=== PATIENT | male | born 1985 | race African-American/Black ===

== ENCOUNTER 2017-03-20 22:47 | Emergency (ER) | payer SELFPAY ==
[~2017-03-20 22:47] MED LIST: AMBIEN5 MG PO; DIGESTIVE ENZY1 EAC1 PO; TAMOXIFEN CITRA20 MG PO; VITAMIN B12500 MCG PO; [UNRECOGNIZED DRUG - OTHER]
[2017-03-20] MEDS ORDERED: NO HOME MEDICATION XX (22:53)
== END 2017-03-21 00:30 ==
LOC: EDMED 22:47
DX: Z20.2 Contact with and (suspected) exposure to infections with a predominantly sexual mode of transmission (principal); R36.9 Urethral discharge, unspecified; Z98.890 Other specified postprocedural states
CPT/HCPCS: J0696